=== PATIENT | female | born 1995 | race African-American/Black ===

== ENCOUNTER 2016-08-31 13:07 | Emergency (ER) | payer MEDICAID, OTHER ==
[~2016-08-31] VITALS: Ht 165.1 cm; Wt 102.1 kg
[~2016-08-31 13:07] MED LIST: AZITHROMYCIN250 MG ORAL; BACTRIM-DS1 EA ORAL; IBUPROFEN600 MG ORAL; NKM
[2016-08-31 13:54] VITALS: BP 130/79
--- NOTE | 2016-08-31 14:39 | Emergency Room Report ---
History of Present Illness General Chief Complaint: Upper Respiratory Illness Source: Patient Present Illness HPI 21-year-old female presents to emergency Department complaining of intermittent productive cough times one month patient reports increasing phlegm and new- onset nausea and vomiting x2 days. Patient denies fevers or chills. Patient states initially she was treated with mkmi-ihi-pjqvuug cough syrup and antibiotic ( Z-pack) medications and her PCP. Patient also reports that she has tried several other kvrm-xlt-wfjhogk medications to relieve her symptoms with no relief. Patient denies nasal congestion, reports rhinorrhea. patient denies wheezing, shortness of breath, ill contacts or recent travel. Patient is up-to-date with her vaccinations and she denies neck stiffness or headache. She denies abdominal pain, dysuria, hematuria, or frequency. Denies CP, Palpitations, LOC, AMS, dizziness, Changes in Vision, Sensation, paresthesias, or a sudden severe headache. Allergies: Coded Allergies: PENICILLINS (Verified Allergy, Unknown, 02/02/14) Patient History Past Medical History: see triage record Past Surgical History: none Pertinent Family History: none Last Menstrual Period: 08/14/2016 Now: No Immunizations: UTD Reviewed Nursing Documentation: PMH: Agreed, PSxH: Agreed Nursing Documentation-PMH Past Medical History: No Stated History Review of Systems All Other Systems: negative except mentioned in HPI Physical Exam Vital Signs Date Time Temp Pulse Resp B/P Pulse Ox O2 Delivery O2 Flow Rate FiO2 08/31/16 13:54 98.2 60 18 130/79 99 Room Air Sp02 EP Interpretation: reviewed, normal General Appearance: no apparent distress, alert, GCS 15, non-toxic Head: normocephalic, atraumatic Eyes: bilateral eye PERRL, bilateral eye normal inspection ENT: hearing grossly normal, normal pharynx, no angioedema, normal voice, TMs + canals normal, uvula midline, nasal congestion Neck: full range of motion, no meningismus, no bony tend, supple/symm/no masses Respiratory: chest non-tender, lungs clear, normal breath sounds, speaking full sentences Cardiovascular #1: regular rate, rhythm, no edema, normal capillary refill Gastrointestinal: normal bowel sounds, non tender, soft, no guarding, no rebound, other - no TTP, negative mcburny's Rectal: deferred Genitourinary: normal inspection, no CVA tenderness Musculoskeletal: back normal, gait/station normal, normal range of motion, non- tender Neurologic: alert, oriented x3, responsive, motor strength/tone normal, sensory intact, speech normal Psychiatric: judgement/insight normal, memory normal, mood/affect normal, no suicidal/homicidal ideation Skin: normal color, no rash, warm/dry, well hydrated Lymphatic: no adenopathy Medical Decision Making PA Attestation Dr. felix is my supervising Physician whom patient management has been discussed with. Diagnostic Impression: Primary Impression: Upper respiratory infection Qualified Codes: J06.9 - Acute upper respiratory infection, unspecified; B97.89 - Other viral agents as the cause of diseases classified elsewhere Additional Impression: Phlegm in throat ER Course 21-year-old female presents to emergency Department complaining of intermittent productive cough times one month patient reports increasing phlegm and new- onset nausea and vomiting x2 days. Patient denies fevers or chills. Patient states initially she was treated with rmby-iqw-orhqgmw cough syrup and antiemetic medications and her PCP. Patient also reports that she has tried several other slkq-yrj-wcbsjax medications to relieve her symptoms with no relief. Patient denies nasal congestion patient denies wheezing, shortness of breath, ill contacts or recent travel. Patient is up-to-date with her vaccinations and she denies neck stiffness or headache. She denies abdominal pain. Ddx considered but are not limited to URI, pneumonia, PE, strep pharyngitis, meningitis, , gastritis Vital signs: Pt.is afebrile VS are WNL H&PE are most consistent with URI ORDERS: -Urine Hcg: Negative ED INTERVENTIONS: None required at this time. DISCHARGE: At this time pt. is stable for d/c to home. Will provide printed patient care instructions, and any necessary prescriptions. Care plan and follow up instructions have been discussed with the patient prior to discharge. Labs Test 08/31/16 14:16 Urine HCG, Qualitative Negative Last Vital Signs Date Time Temp Pulse Resp B/P Pulse Ox O2 Delivery O2 Flow Rate FiO2 08/31/16 13:58 62 18 Room Air 08/31/16 13:54 98.2 130/79 99 Disposition: HOME, SELF-CARE Condition: Stable Scripts Cetirizine Hcl/Pseudoephedrine (ZYRTEC-D TABLET) 1 Each Tab.er.12h 1 EACH ORAL Q12HR for 10 Days, #20 TAB Prov: Greta Lauren 08/31/16 Guaifenesin (Guaifenesin) 1,200 Mg Tab.er.12h 1200 MG PO BID for 10 Days, #20 TAB Prov: Greta Lauren 08/31/16 Codeine/Promethazine Hcl* (PROMETHAZINE-CODEINE SYRUP*) 118 Ml Syrup 5 ML ORAL Q6HR Y for For Cough, #118 ML 0 Refills Prov: Greta Lauren 08/31/16 Patient Instructions: Upper Respiratory Infection, Adult Additional Instructions: Take medications as directed. Follow up with PCP in 3-5 days Return sooner to ED if new symptoms occur, or current symptoms become worse. - Please note that this Emergency Department Report was dictated using [employer]ight[employer] openings inspector technology software, occasionally this can lead to erroneous entry secondary to interpretation by the dictation equipment. Greta Lauren Aug 31, 2016 14:39
[2016-08-31] MEDS ORDERED: PROMETHAZINE-C118 M1 ORAL (14:54)
[2016-08-31] MEDS ORDERED: GUAIFENESIN1200 MG PO (14:54)
[2016-08-31] MEDS ORDERED: ZYRTEC-D TABLE1 EACH ORAL (14:56)
[2016-08-31 15:10] VITALS: BP 130/79
== END 2016-08-31 15:10 | disposition home or self-care (01) ==
LOC: EMR 14:42
DX: J06.9 Acute upper respiratory infection, unspecified (principal); Z88.0 Allergy status to penicillin
CPT/HCPCS: 81025; 99284

== ENCOUNTER 2017-02-27 17:28 | Emergency (ER) | payer OTHER ==
[~2017-02-27] VITALS: Ht 165.1 cm; Wt 83.9 kg
[~2017-02-27 17:28] MED LIST changes: +GUAIFENESIN1200 MG PO; +PROMETHAZINE-C118 M1 ORAL; +ZYRTEC-D TABLE1 EACH ORAL
[2017-02-27 17:30] VITALS: BP 105/66
[2017-02-27] MEDS ORDERED: ERYTHROMYCIN3.5 GM LEFT EYE (17:45)
[2017-02-27 17:46] VITALS: BP 105/66
--- NOTE | 2017-02-27 18:52 | Emergency Room Report ---
History of Present Illness General Chief Complaint: Eye Problems Source: Patient Present Illness [facility] The patient is a 21-year-old female presenting for left eye possible infection. She noticed swelling to the left lower eyelid 2 days prior and then developed itching to the eye. Pain is a 210 burning sensation. She also noticed crusting of the L eyelids in the morning. She denies any known sick contacts. She denies any changes in vision or any other symptoms Allergies: Coded Allergies: PENICILLINS (Verified Allergy, Unknown, 02/02/14) Patient History Past Medical History: see triage record Pertinent Family History: none Reviewed Nursing Documentation: PMH: Agreed, PSxH: Agreed Nursing Documentation-PMH Past Medical History: No Stated History Review of Systems All Other Systems: negative except mentioned in HPI Physical Exam Vital Signs Date Time Temp Pulse Resp B/P (MAP) Pulse Ox O2 Delivery O2 Flow Rate FiO2 02/27/17 17:30 97.7 86 20 105/66 99 Room Air Sp02 EP Interpretation: reviewed, normal General Appearance: no apparent distress, alert, GCS 15, non-toxic Head: normocephalic, atraumatic Eyes: left eye lid inflammation - lower, bilateral eye PERRL, bilateral eye EOMI ENT: hearing grossly normal, normal pharynx, no angioedema, normal voice, uvula midline Neck: full range of motion, supple/symm/no masses Neurologic: alert, oriented x3, responsive, motor strength/tone normal, sensory intact, speech normal Psychiatric: judgement/insight normal, memory normal, mood/affect normal, no suicidal/homicidal ideation Skin: normal color, no rash, warm/dry, well hydrated Medical Decision Making PA Attestation Dr. Mckeon is my supervising physician. Patient management was discussed with my supervising physician Diagnostic Impression: Primary Impression: Blepharitis of left eyelid Qualified Codes: H01.005 - Unspecified blepharitis left lower eyelid ER Course The patient is a 21-year-old female presenting for left eye possible infection. Differential diagnoses considered but not limited to allergic conjunctivitis, bacterial conjunctivitis, viral conjunctivitis, blepharitis, hordeolum PE: NAD HEENT reveals L lower eyelid edema and erythema. No injection. PERRL. EOMI The patient will be discharged with prescription for erythromycin ointment and needs to follow up with her primary doctor. ER precautions are given Last Vital Signs Date Time Temp Pulse Resp B/P (MAP) Pulse Ox O2 Delivery O2 Flow Rate FiO2 02/27/17 17:46 97.7 87 20 105/66 99 Room Air Status: improved Disposition: HOME, SELF-CARE Condition: Improved Scripts Erythromycin Base (ERYTHROMYCIN*) 3.5 Gm Oint...g. 0.5 INCH LEFT EYE Q6HR, #3.5 GM 0 Refills Prov: DAWN AGUILA 02/27/17 Patient Instructions: Blepharitis Additional Instructions: I discussed my findings with the patient. All questions and concerns have been answered. Treatment and medication compliance have been addressed. I advised the patient that they need to follow up with PMD in 3-5 days. Return to ED if symptoms worsen, new symptoms arise, or if needed for any reason. Patient verbalized understanding of discharge instructions. DAWN AGUILA Feb 27, 2017 18:52
== END 2017-02-27 17:47 | disposition home or self-care (01) ==
LOC: EMR 17:47
DX: H01.005 Unspecified blepharitis left lower eyelid (principal); Z88.0 Allergy status to penicillin
CPT/HCPCS: 99283

== ENCOUNTER 2017-04-13 12:22 | Emergency (ER) | payer OTHER ==
[~2017-04-13] VITALS: Ht 157.5 cm; Wt 83.9 kg
[~2017-04-13 12:22] MED LIST changes: +ERYTHROMYCIN3.5 GM LEFT EYE
[2017-04-13 13:05] VITALS: BP 96/70
--- NOTE | 2017-04-13 13:24 | Emergency Room Report ---
History of Present Illness General Chief Complaint: Upper Respiratory Illness Source: Patient Present Illness HPI 21-year-old female presents to the emergency department complaining of cough, chills, nasal congestion and rhinorrhea x3 days. Patient reports increase in mucus however difficulty clearing from her throat. Patient denies fevers, abdominal pain, nausea, vomiting. Patient reports mild scratching sensation on her throat with 5/10 in severity pain and generalized body aches. Patient denies ill contacts or recent travel. She states she is not up-to-date with her flu vaccination. She denies fatigue, lethargy, neck pain or stiffness. Denies history of asthma or COPD. Denies CP, Palpitations, LOC, AMS, dizziness, Changes in Vision, Sensation, paresthesias, or a sudden severe headache. Allergies: Coded Allergies: PENICILLINS (Verified Allergy, Unknown, 02/02/14) Patient History Past Medical History: see triage record Past Surgical History: none Pertinent Family History: none Last Menstrual Period: 03/2017 Now: No Reviewed Nursing Documentation: PMH: Agreed, PSxH: Agreed Nursing Documentation-PMH Past Medical History: No Stated History Review of Systems All Other Systems: negative except mentioned in HPI Physical Exam Vital Signs Date Time Temp Pulse Resp B/P (MAP) Pulse Ox O2 Delivery O2 Flow Rate FiO2 04/13/17 13:05 98.8 94 18 96/70 99 Room Air Sp02 EP Interpretation: reviewed, normal General Appearance: no apparent distress, alert, GCS 15, non-toxic Head: normocephalic, atraumatic Eyes: bilateral eye normal inspection, bilateral eye PERRL ENT: hearing grossly normal, normal pharynx, no angioedema, normal voice, TMs + canals normal, uvula midline, moist mucus membranes Neck: full range of motion, no meningismus, no bony tend Respiratory: chest non-tender, lungs clear, normal breath sounds, no wheezing, speaking full sentences Cardiovascular #1: regular rate, rhythm Gastrointestinal: non tender, soft Musculoskeletal: back normal, gait/station normal, normal range of motion, non- tender Neurologic: alert, oriented x3, responsive, motor strength/tone normal, sensory intact, speech normal Skin: normal color, no rash, warm/dry, well hydrated Lymphatic: no adenopathy Medical Decision Making PA Attestation Dr. Estrella is my supervising Physician whom patient management has been discussed with. Diagnostic Impression: Primary Impression: Upper respiratory infection Qualified Codes: J06.9 - Acute upper respiratory infection, unspecified; B97.89 - Other viral agents as the cause of diseases classified elsewhere ER Course 21-year-old female presents to the emergency department complaining of cough, chills, nasal congestion and rhinorrhea x3 days. Patient reports increase in mucus however difficulty clearing from her throat. Patient denies fevers, abdominal pain, nausea, vomiting. Patient reports mild scratching sensation on her throat with 5/10 in severity pain and generalized body aches. Patient denies ill contacts or recent travel. She states she is not up-to-date with her flu vaccination. She denies fatigue, lethargy, neck pain or stiffness. Denies history of asthma or COPD. Denies CP, Palpitations, LOC, AMS, dizziness, Changes in Vision, Sensation, paresthesias, or a sudden severe headache. Ddx considered but are not limited to URI, pneumonia, PE, strep pharyngitis, meningitis. Vital signs: Pt. is afebrile, the remaining VS are WNL H&PE are most consistent with URI- no meningeal signs, oropharynx is not involved, no evidence of bacterial infection at this time. ORDERS: none required at this time, the diagnosis is clinical ED INTERVENTIONS: None required at this time. d/w pt. conservative treatment, and to follow up with a primary care provider. pt given a list of primary care clinics for follow up. d/w pt. to return to the ED with worsening or new symptoms. DISCHARGE: At this time pt. is stable for d/c to home. Will provide printed patient care instructions, and any necessary prescriptions. Care plan and follow up instructions have been discussed with the patient prior to discharge. Last Vital Signs Date Time Temp Pulse Resp B/P (MAP) Pulse Ox O2 Delivery O2 Flow Rate FiO2 04/13/17 13:05 98.8 94 18 96/70 99 Room Air Disposition: HOME, SELF-CARE Condition: Stable Scripts Ibuprofen* (MOTRIN*) 400 Mg Tablet 400 MG ORAL THREE TIMES A DAY, #20 TAB 0 Refills Prov: Greta Lauren P.A. 04/13/17 Guaifenesin (Guaifenesin) 1,200 Mg Tab.er.12h 1200 MG PO Q12HR for 10 Days, #20 TAB Prov: Greta Lauren 04/13/17 Loratadine/Pseudoephedrine (CLARITIN-D 24 HOUR TABLET) 1 Each Tab.er.24h 1 TAB PO DAILY for 7 Days, #14 TAB Prov: Greta Lauren 04/13/17 Codeine/Promethazine Hcl* (PROMETHAZINE-CODEINE SYRUP*) 118 Ml Syrup 5 ML ORAL Q6H Y for For Cough, #120 ML 0 Refills Prov: Greta Lauren 04/13/17 Patient Instructions: Upper Respiratory Infection, Adult Additional Instructions: Take medications as directed. Follow up with a Primary Care Provider in 3-5 days, even if your symptoms have resolved. --Please review list of primary care clinics, if you do not already have a primary care provider Return sooner to ED if new symptoms occur, or current symptoms become worse. Do not drink alcohol, drive, or operate heavy machinery while taking Cough Syrup as this may cause drowsiness. - Please note that this Emergency Department Report was dictated using [employer]forced steel placing supervisor technology software, occasionally this can lead to erroneous entry secondary to interpretation by the dictation equipment. Greta Lauren Apr 13, 2017 13:24
[2017-04-13] MEDS ORDERED: PROMETHAZINE-C118 M1 ORAL (13:25)
[2017-04-13] MEDS ORDERED: CLARITIN-D 241 EACH PO (13:25)
[2017-04-13] MEDS ORDERED: IBUPROFEN400 MG ORAL (13:25)
[2017-04-13] MEDS ORDERED: GUAIFENESIN1200 MG PO (13:25)
== END 2017-04-13 13:32 | disposition home or self-care (01) ==
LOC: EMR 13:21
DX: J06.9 Acute upper respiratory infection, unspecified (principal); Z88.0 Allergy status to penicillin
CPT/HCPCS: 99284

== ENCOUNTER 2017-06-03 12:13 | Emergency (ER) | payer OTHER ==
[~2017-06-03] VITALS: Ht 165.1 cm; Wt 86.2 kg
[~2017-06-03 12:13] MED LIST changes: +CLARITIN-D 241 EACH PO; +IBUPROFEN400 MG ORAL
[2017-06-03] MEDS ORDERED: CLARITIN5 MG ORAL (12:28)
--- NOTE | 2017-06-03 12:35 | Emergency Room Report ---
History of Present Illness General Chief Complaint: Upper Respiratory Illness Source: Patient Present Illness HPI The patient is a 21-year-old female who denies any medical history presenting for 3 days of subjective fever, cough, myalgia, fatigue. She admits to recent travel from [place]. She denies any known sick contacts. She did not have flu shot this year. She has not taken any medications for symptoms. She denies any other symptoms such as abd pain, SOB, rash Allergies: Coded Allergies: PENICILLINS (Verified Allergy, Unknown, 02/02/14) Patient History Past Medical History: see triage record Pertinent Family History: none Last Menstrual Period: 05/14/17 Now: No Reviewed Nursing Documentation: PMH: Agreed, PSxH: Agreed Nursing Documentation-PMH Past Medical History: No Stated History Review of Systems All Other Systems: negative except mentioned in HPI Physical Exam Vital Signs Date Time Temp Pulse Resp B/P (MAP) Pulse Ox O2 Delivery O2 Flow Rate FiO2 06/03/17 12:25 98.4 93 19 116/88 99 Room Air Sp02 EP Interpretation: reviewed, normal General Appearance: no apparent distress, alert, GCS 15, non-toxic Head: normocephalic, atraumatic Eyes: bilateral eye normal inspection, bilateral eye PERRL ENT: hearing grossly normal, no angioedema, normal voice, uvula midline, pharyngeal erythema Neck: full range of motion, supple/symm/no masses Respiratory: chest non-tender, lungs clear, normal breath sounds, no wheezing, speaking full sentences Cardiovascular #1: regular rate, rhythm, no edema Musculoskeletal: back normal, gait/station normal, normal range of motion, non- tender Neurologic: alert, oriented x3, responsive, motor strength/tone normal, sensory intact, speech normal Psychiatric: judgement/insight normal, memory normal, mood/affect normal, no suicidal/homicidal ideation Skin: normal color, no rash, warm/dry, well hydrated Lymphatic: adenopathy - cervical Medical Decision Making PA Attestation Dr. Richardson is my supervising physician. Patient management was discussed with my supervising physician Diagnostic Impression: Primary Impression: Upper respiratory infection Qualified Codes: J06.9 - Acute upper respiratory infection, unspecified ER Course The patient is a 21-year-old female who denies any medical history presenting for 3 days of subjective fever, cough, myalgia, fatigue Differential diagnosis include but not limited to pharyngitis, sinusitis, AOM, bronchitis, PNA Physical exam: Vitals within normal limits. Afebrile. No apparent distress HEENT exam: There is pharyngeal erythema. No exudate. Uvula midline. Moist mucous membranes. There is bilateral cervical lymphadenopathy. Lungs are clear to auscultation bilaterally Skin is warm and dry. No rash CXR unremarkable The patient will be discharged home with a prescription for cough medication and motrin and is given ER precautions. Patient will followup with primary care Microbiology Date/Time Source Procedure Growth Status 06/03/17 12:42 Nasal Nares Influenza Types A,B Antigen (MAYA) - Final Complete Lab Results Impression Neg Chest X-Ray Diagnostic Results Chest X-Ray Diagnostic Results : Chest X-Ray Ordered: Yes Indication: Other - cough EP Interpretation: Yes ROMIE Xray: Interpretation reviewed, by supervising MD, and agrees with findings. Interpretation: no consolidation, no effusion, no pneumothorax, no acute cardiopulmonary disease Impression: No acute disease Electronically Signed by: Dandy Naranjo PA-C Last Vital Signs Date Time Temp Pulse Resp B/P (MAP) Pulse Ox O2 Delivery O2 Flow Rate FiO2 06/03/17 12:25 98.4 93 19 116/88 99 Room Air Status: improved Disposition: HOME, SELF-CARE Condition: Improved Scripts D-Methorphan Hb/Prometh Hcl* (PROMETHAZINE-DM SYRUP*) 118 Ml Syrup 5 ML ORAL Q6H Y for For Cough, #118 ML 0 Refills Prov: TERZIAN,DANDY P.A. 06/03/17 Ibuprofen* (MOTRIN*) 600 Mg Tablet 600 MG ORAL Q8H Y for For Pain, #30 TAB 0 Refills Prov: TERZIAN,DANDY P.A. 06/03/17 TERZIAN,DANDY P.A. Jun 03, 2017 12:35
[2017-06-03] MEDS ORDERED: PROMETHAZINE-D118 ML ORAL (13:19)
[2017-06-03] MEDS ORDERED: IBUPROFEN600 MG ORAL (13:19)
[2017-06-03 13:24] VITALS: BP 116/88
[2017-06-03 13:25] VITALS: BP 116/88
--- NOTE | 2017-06-04 21:48 | Diagnostic Imaging Report ---
Indication: Dyspnea Comparison: None A single view chest radiograph was obtained. Findings: Cardiomediastinal appearance is within normal limits for age. Pulmonary vascularity is appropriate. The diaphragmatic contour is smooth and costophrenic angles are sharp. No pleural effusions are identified. The bones are unremarkable. Impression: No acute findings
== END 2017-06-03 13:27 | disposition home or self-care (01) ==
LOC: EMR 12:31
DX: J06.9 Acute upper respiratory infection, unspecified (principal); Z88.0 Allergy status to penicillin
CPT/HCPCS: 71045; 86710; 99283

== ENCOUNTER 2019-12-24 14:41 | Emergency (ER) | payer OTHER ==
[~2019-12-24] VITALS: Ht 165.1 cm; Wt 108.9 kg
[~2019-12-24 14:41] MED LIST changes: +CLARITIN5 MG ORAL; +PROMETHAZINE-D118 ML ORAL
[2019-12-24 15:09] VITALS: BP 102/62
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
--- NOTE | 2019-12-24 15:25 | NUR ---
ED Nurse Note: Received report from Jennie CLEMONS. Pt AAOx4, verbally responisve. No SOB. Urine specimen collected and sent to lab.
[2019-12-24] MEDS ORDERED: Omnipaque-300 100ml vial INJ PRN (15:45)
--- NOTE | 2019-12-24 15:51 | NUR ---
ED Nurse Note: IV line established. Blood specimen obtained and sent to lab.
--- NOTE | 2019-12-24 15:52 | NUR ---
ED Nurse Note: Xray at bedside.
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
[2019-12-24 16:17] LABS: BASOPHILS % (AUTO) 1.5 % (0.0-2.0); EOSINOPHILS % (AUTO) 0.1 % (0.0-3.0); HEMATOCRIT 40.7 % (37.0-47.0); HEMOGLOBIN 13.6 G/DL (12.0-16.0); LYMPHOCYTES % (AUTO) 38.9 % (20.0-45.0); MEAN CORPUSCULAR VOLUME 92 FL (80-99); MONOCYTES % (AUTO) 6.3 % (1.0-10.0); NEUTROPHILS % (AUTO) 53.2 % (45.0-75.0); PLATELET COUNT 210 K/UL (150-450); RED BLOOD COUNT 4.44 M/UL (4.20-5.40); WHITE BLOOD COUNT 8.7 K/UL (4.8-10.8)
[2019-12-24 16:21] LABS: ANION GAP 5 mmol/L (5-15); BLOOD UREA NITROGEN 16 mg/dL (7-18); CALCIUM 9.2 MG/DL (8.5-10.1); CARBON DIOXIDE 28 MMOL/L (21-32); CHLORIDE 103 MMOL/L (98-107); POTASSIUM 3.6 MMOL/L (3.5-5.1); SODIUM 136 MMOL/L (136-145)
[2019-12-24] MEDS ORDERED: Methocarbamol 500mg tab ORAL ONE (16:30)
[2019-12-24] MEDS ORDERED: Acetaminophen 500mg (ES) tab ORAL ONE (16:30)
--- NOTE | 2019-12-24 16:46 | NUR ---
ED Nurse Note: Pt was taken to CT.
--- NOTE | 2019-12-24 16:51 | NUR ---
ED Nurse Note: Pt returned from Ct, not in any distress.
--- NOTE | 2019-12-24 16:57 | Diagnostic Imaging Report ---
Indication: Reason For Exam: PAIN Technique: 3 views of the right knee Comparison: None Findings:No acute fractures. No dislocations. The joint spaces are preserved Impression: Negative
--- NOTE | 2019-12-24 16:58 | Diagnostic Imaging Report ---
Indications: Left forearm pain Technique: Two views of the left forearm Comparison: None Findings: No acute fractures. No dislocations. Joint spaces are preserved Impression: Negative
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
[2019-12-24] MEDS ORDERED: ROBAXIN-750750 MG PO (17:14)
[2019-12-24] MEDS ORDERED: IBUPROFEN600 M1 ORAL (17:14)
[2019-12-24 17:19] VITALS: BP 110/69
--- NOTE | 2019-12-24 17:19 | NUR ---
ED Nurse Note: Pt cleared by ERMD for discharge. DC instructions/prescription was given and explained to pt and verbalized understanding of teachings. All medical deviecs such as ID band and IV line removed. Pt is AAO x4, ambulatory and left with all personal belongings.
== END 2019-12-24 17:19 | disposition home or self-care (01) ==
LOC: EMR 15:13
DX: S50.12XA Contusion of left forearm, initial encounter (principal); S30.1XXA Contusion of abdominal wall, initial encounter; M25.561 Pain in right knee; Z88.0 Allergy status to penicillin; V47.6XXA Car passenger injured in collision with fixed or stationary object in traffic accident, initial encounter; Y92.9 Unspecified place or not applicable
CPT/HCPCS: 36415; 73090; 73562; 74177; 80048; 81025; 85025; Q9967; Z7502; 99284

== ENCOUNTER 2020-02-12 20:22 | Emergency (ER) | payer OTHER ==
[~2020-02-12] VITALS: Ht 165.1 cm; Wt 90.7 kg
[~2020-02-12 20:22] MED LIST changes: +IBUPROFEN600 M1 ORAL; +ROBAXIN-750750 MG PO
[2020-02-12 20:40] VITALS: BP 108/74
[2020-02-12] MEDS ORDERED: Ketorolac 60mg Inj IM ONE (21:30)
[2020-02-12] MEDS ORDERED: Morphine Sulfate 2mg/ml Inj(IV/IM USE ONLY) IVP ONE (22:15)
--- NOTE | 2020-02-12 22:16 | Emergency Room Report ---
History of Present Illness General Chief Complaint: Back Pain-No Injury Source: Patient (Dhruv Mckeon MD) Present Illness HPI Is a 24-year-old female acute onset of left-sided flank pain. Reports having increased difficulty with urination. Denies any recent trauma. Pain is improved with position. Reports having pain with movements and somewhat flank tenderness. had not been having any fever. Denies any dysuria. Denies prior history of similar type pain in the past. (Dhruv Mckeon MD) Allergies: Coded Allergies: PENICILLINS (Verified Allergy, Unknown, 02/02/14) COVID-19 Screening Contact w/high risk pt: No Experienced COVID-19 symptoms?: No COVID-19 Testing performed CERTIFIED ORTHOTIC FITTER: No (Dhruv Mckeon MD) Patient History Past Medical History: see triage record Last Menstrual Period: 02/05/20 Now: No : 3 Para: 0 Reviewed Nursing Documentation: PMH: Agreed; PSxH: Agreed (Dhruv Mckeon MD) Nursing Documentation-PMH Past Medical History: No Stated History (Dhruv Mckeon MD) Review of Systems All Other Systems: negative except mentioned in HPI (Dhruv Mckeon MD) Physical Exam Vital Signs Date Time Temp Pulse Resp B/P (MAP) Pulse Ox O2 Delivery O2 Flow Rate FiO2 02/12/20 20:29 98.2 62 16 108/74 (85) 96 Room Air Sp02 EP Interpretation: reviewed, normal General Appearance: normal inspection, well appearing, no apparent distress, alert, GCS 15, Chronically Ill Head: atraumatic ENT: normal ENT inspection, hearing grossly normal, normal voice Neck: normal inspection, full range of motion, supple, no bony tend Respiratory: normal inspection, lungs clear, normal breath sounds, no respiratory distress, no retraction, no wheezing Cardiovascular #1: regular rate, rhythm, no edema Gastrointestinal: normal inspection, normal bowel sounds, non tender, soft, no guarding, no hernia Genitourinary: CVA tenderness (L) Musculoskeletal: normal inspection, back normal, normal range of motion Neurologic: alert, motor strength/tone normal, 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 Differential diagnosis include was not limited to pyelonephritis, kidney stone, pancreatitis among others. Because of complexity of patient's case laboratory tests and imaging studies were ordered.Laboratory testing was unremarkable. Patient was having some difficulty with voiding. She started on IV fluids and given pain medications. CT imaging was ordered due to patient's left-sided flank pain. Urine test was negative. Patient endorsed to Dr. Suazo pending CT imaging. Labs Test 02/12/20 22:27 White Blood Count 7.6 K/UL (4.8-10.8) Red Blood Count 4.21 M/UL (4.20-5.40) Hemoglobin 12.6 G/DL (12.0-16.0) Hematocrit 39.7 % (37.0-47.0) Mean Corpuscular Volume 94 FL (80-99) Mean Corpuscular Hemoglobin 30.0 PG (27.0-31.0) Mean Corpuscular Hemoglobin Concent 31.8 G/DL (32.0-36.0) Red Cell Distribution Width 14.0 % (11.6-14.8) Platelet Count 166 K/UL (150-450) Mean Platelet Volume 8.9 FL (6.5-10.1) Neutrophils (%) (Auto) 44.9 % (45.0-75.0) Lymphocytes (%) (Auto) 44.8 % (20.0-45.0) Monocytes (%) (Auto) 9.1 % (1.0-10.0) Eosinophils (%) (Auto) 0.2 % (0.0-3.0) Basophils (%) (Auto) 1.0 % (0.0-2.0) Sodium Level 144 MMOL/L (136-145) Potassium Level 3.8 MMOL/L (3.5-5.1) Chloride Level 107 MMOL/L (98-107) Carbon Dioxide Level 29 MMOL/L (21-32) Anion Gap 9 mmol/L (5-15) Blood Urea Nitrogen 14 mg/dL (7-18) Creatinine 1.1 MG/DL (0.55-1.30) Estimat Glomerular Filtration Rate > 60 mL/min (>60) Glucose Level 86 MG/DL (74-106) Calcium Level 8.4 MG/DL (8.5-10.1) Total Bilirubin 0.3 MG/DL (0.2-1.0) Aspartate Amino Transf (AST/SGOT) 19 U/L (15-37) Alanine Aminotransferase (ALT/SGPT) 24 U/L (12-78) Alkaline Phosphatase 55 U/L (46-116) Total Protein 6.7 G/DL (6.4-8.2) Albumin 3.3 G/DL (3.4-5.0) Globulin 3.4 g/dL Albumin/Globulin Ratio 1.0 (1.0-2.7) Human Chorionic Gonadotropin, Qual Negative (NEGATIVE) (Dhruv Mckeon MD) ER Course Patient signed out to me. She presents with left flank pain/back pain. CT scan was negative for kidney stone. Urinalysis negative for infection. She is positive for methamphetamine. Will discharge home. (Best Suazo MD) CT/MRI/US Diagnostic Results CT/MRI/US Diagnostic Results : Imaging Test Ordered: CT abdomen pelvis Impression Read by radiologist. Negative. (Best Suazo MD) Last Vital Signs Date Time Temp Pulse Resp B/P (MAP) Pulse Ox O2 Delivery O2 Flow Rate FiO2 02/12/20 20:40 98.2 62 16 108/74 96 Room Air Status: improved (Dhruv Mckeon MD) Disposition: HOME, SELF-CARE Condition: Stable Scripts Ibuprofen* (MOTRIN*) 600 Mg Tablet 600 MG ORAL Q6H PRN for For Pain, #30 TAB 0 Refills Prov: Best Suazo MD 02/13/20 Referrals: NOT CHOSEN [facility]/MD,REFERRING (PCP) Patient Instructions: Back Pain, Adult Additional Instructions: Follow-up with your doctor in 7 days. Abstain from drugs. Return if worse. Dhruv Mckeon MD Feb 12, 2020 22:16 Best Suazo MD Feb 13, 2020 01:24
[2020-02-12 22:59] LABS: EOSINOPHILS % (AUTO) 0.2 % (0.0-3.0); HEMATOCRIT 39.7 % (37.0-47.0); HEMOGLOBIN 12.6 G/DL (12.0-16.0); LYMPHOCYTES % (AUTO) 44.8 % (20.0-45.0); MEAN CORPUSCULAR VOLUME 94 FL (80-99); MONOCYTES % (AUTO) 9.1 % (1.0-10.0); NEUTROPHILS % (AUTO) 44.9 % (45.0-75.0); PLATELET COUNT 166 K/UL (150-450); RED BLOOD COUNT 4.21 M/UL (4.20-5.40); WHITE BLOOD COUNT 7.6 K/UL (4.8-10.8)
[2020-02-12 23:00] LABS: ANION GAP 9 mmol/L (5-15); BLOOD UREA NITROGEN 14 mg/dL (7-18); CALCIUM 8.4 MG/DL (8.5-10.1); CARBON DIOXIDE 29 MMOL/L (21-32); CHLORIDE 107 MMOL/L (98-107); CREATININE 1.1 MG/DL (0.55-1.30); POTASSIUM 3.8 MMOL/L (3.5-5.1); SODIUM 144 MMOL/L (136-145)
[2020-02-12 23:05] LABS: ALANINE AMINOTRANSFERASE 24 U/L (12-78); ALBUMIN 3.3 G/DL (3.4-5.0); ALKALINE PHOSPHATASE 55 U/L (46-116); ASPARTATE AMINO TRANSFERASE 19 U/L (15-37); BILIRUBIN,TOTAL 0.3 MG/DL (0.2-1.0)
--- NOTE | 2020-02-12 23:50 | Diagnostic Imaging Report ---
EXAM: CT Abdomen and Pelvis Without Intravenous Contrast CLINICAL HISTORY: PAIN TECHNIQUE: Axial computed tomography images of the abdomen and pelvis without intravenous contrast. CTDI is 20.9 mGy and DLP is 1154.8 mGy-cm. One or more of the following dose reduction techniques were used: automated exposure control, adjustment of the mA and/or kV according to patient size, use of iterative reconstruction technique. Coronal and sagittal reformatted images were created and reviewed. COMPARISON: 12/24/2019 FINDINGS: Limitations: Study limited due to lack of IV contrast. Lung bases: Unremarkable. No mass. No consolidation. ABDOMEN: Liver: Unremarkable. Gallbladder and bile ducts: Unremarkable. No calcified stones. No ductal dilation. Pancreas: Unremarkable. No ductal dilation. Spleen: Unremarkable. No splenomegaly. Adrenals: Unremarkable. No mass. Kidneys and ureters: Unremarkable. No obstructing stones. No hydronephrosis. Stomach and bowel: Unremarkable. No obstruction. No mucosal thickening. PELVIS: Appendix: No findings to suggest acute appendicitis. Bladder: Unremarkable. No stones. Reproductive: Unremarkable as visualized. ABDOMEN and PELVIS: Intraperitoneal space: Unremarkable. No free air. No significant fluid collection. Bones/joints: No acute fracture. No dislocation. Soft tissues: Unremarkable. Vasculature: Unremarkable. No abdominal aortic aneurysm. Lymph nodes: Unremarkable. No enlarged lymph nodes. IMPRESSION: 1. Study limited due to lack of IV contrast. 2. No acute abnormality definitively identified to account for patient presentation.
[2020-02-13 01:12] LABS: APPEARANCE,URINE CLEAR; BILIRUBIN, URINE NEGATIVE (NEGATIVE); GLUCOSE, URINE (UA) NEGATIVE (NEGATIVE); KETONES,URINE NEGATIVE (NEGATIVE); LEUKOCYTE ESTERASE ,URINE 1+ (NEGATIVE); NITRITE,URINE NEGATIVE (NEGATIVE); PH,URINE 6 (4.5-8.0); PROTEIN,URINE 1+ (NEGATIVE); UROBILINOGEN,URINE 1 MG/DL (0.0-1.0)
[2020-02-13 01:20] LABS: COLOR,URINE YELLOW
[2020-02-13] MEDS ORDERED: IBUPROFEN600 M1 ORAL (01:24)
[2020-02-13 01:30] VITALS: BP 115/85
== END 2020-02-13 01:30 | disposition home or self-care (01) ==
LOC: EMR 21:57
DX: M54.5 Low back pain (principal); F15.10 Other stimulant abuse, uncomplicated; Z88.0 Allergy status to penicillin
CPT/HCPCS: 36415; 74176; 80053; 80307; 81003; 81025; 84703; 85025; 96361; 96372; 96374; J2270; J7030; Z7502; 99284